=== PATIENT | female | born 1995 | race African-American/Black ===

== ENCOUNTER 2021-03-21 07:00 | Inpatient (IN) | payer OTHER ==
[2021-03-21] MEDS ORDERED: BUTORPHANOL TARTRATE 2 MG/ML VIAL ONE (08:26)
[2021-03-21] MEDS ORDERED: PROMETHAZINE HCL 25 MG/1 ML VIAL ONE (08:26)
[2021-03-21 09:08] VITALS: BMI 33.3
[2021-03-21] MEDS ORDERED: BUTORPHANOL TARTRATE 1 MG/ML VIAL IVPB ONE (09:51)
[2021-03-21] MEDS ORDERED: PROMETHAZINE HCL 25 MG/1 ML VIAL IVPB ONE (09:51)
[2021-03-21 09:58] LABS: BASO % 0.5 % (0-2.0); EOS % 0.9 % (0-4.5); HEMATOCRIT 33.6 % (32.4-45.2); HEMOGLOBIN 11.2 GM/dL (10.7-15.3); LYMPH % 21.6 % (8-40); MCHC 33.2 g/dl (32.0-36.0); MEAN CELL VOLUME 78.2 fl (80-96); MEAN PLT VOLUME 8.6 fl (7.5-11.1); MONO % 6.9 % (3.8-10.2); NEUT % 70.1 % (42.8-82.8); PLATELET COUNT 243 10^3/uL (134-434); RBC 4.29 M/mm3 (3.60-5.2); RDW 14.5 % (11.6-15.6); WHITE BLOOD COUNT 14.1 K/mm3 (4.0-10.0)
[2021-03-21] MEDS ORDERED: DEXTROSE 5%-LACTATED RINGERS 1,000 ML IV SCH (10:00)
[2021-03-21 10:08] LABS: INR 0.97 (0.83-1.09); PROTHROMBIN TIME (PATIENT) 11.4 SEC (9.7-13.0)
[2021-03-21 10:11] LABS: ACTIVATED PTT 30.9 SECONDS (25.2-36.5)
[2021-03-21] MEDS ORDERED: OXYTOCIN 20 UNITS in 0.9% NS 20 UNIT/1,000 ML INFUS.BAG IV ONE ×2 (10:41→12:11)
[2021-03-21 10:44] LABS: ALBUMIN 2.3 g/dl (3.4-5.0); BLOOD UREA NITROGEN 7.7 mg/dL (7-18); CALCIUM 8.3 mg/dL (8.5-10.1)
[2021-03-21 10:47] LABS: CREATININE 0.6 mg/dL (0.55-1.3)
[2021-03-21 10:49] LABS: BILIRUBIN,TOTAL 0.3 mg/dL (0.2-1); TOT PROT 5.7 g/dl (6.4-8.2)
[2021-03-21] MEDS ORDERED: BENZOCAINE 20% 57 GM BOTTLE TP PRN (10:51)
[2021-03-21] MEDS ORDERED: WITCH HAZEL 50% (TUCKS) 40 PAD/JAR PAD TP PRN (10:51)
[2021-03-21] MEDS ORDERED: METHYLERGONOVINE MALEATE 0.2 MG/1 ML AMP IM PRN (10:51)
[2021-03-21] MEDS ORDERED: ACETAMINOPHEN 325 MG TABLET (FP) PO PRN (10:51)
[2021-03-21] MEDS ORDERED: IBUPROFEN 600 MG TABLET (FP) PO PRN (10:51)
[2021-03-21] MEDS ORDERED: oxyCODONE HCL 5 MG TABLET PO PRN (10:51)
[2021-03-21] MEDS ORDERED: BENZOCAINE 28 GM HEMORRHOIDAL OINTMENT TP PRN (10:51)
[2021-03-21] MEDS ORDERED: BISACODYL 10 MG SUPP.RECT RC PRN (10:51)
[2021-03-21] MEDS ORDERED: OXYTOCIN 20 UNITS in 0.9% NS 20 UNIT/1,000 ML INFUS.BAG IV SCH (11:00)
[2021-03-21] MEDS ORDERED: OXYTOCIN 30 UNITS in 0.9% NS 30 UNIT/500 ML INFUS.BAG IVPB ONE (11:07)
[2021-03-21 12:04] LABS: HIV INTERPRETATION NEGATIVE (NEGATIVE)
[2021-03-22 08:57] LABS: BASO % 0.5 % (0-2.0); EOS % 1.9 % (0-4.5); HEMOGLOBIN 11.3 GM/dL (10.7-15.3); MCH 25.9 pg (25.7-33.7); MCHC 33.2 g/dl (32.0-36.0); MEAN CELL VOLUME 77.9 fl (80-96); MEAN PLT VOLUME 8.5 fl (7.5-11.1); MONO % 7.7 % (3.8-10.2); NEUT % 58.9 % (42.8-82.8); PLATELET COUNT 272 10^3/uL (134-434); RBC 4.36 M/mm3 (3.60-5.2); RDW 14.9 % (11.6-15.6); WHITE BLOOD COUNT 18.7 K/mm3 (4.0-10.0)
[2021-03-22] MEDS: PRENATAL VITAMINS W/ FOLIC ACID TABLET (FP) PO SCH (09:24)
[2021-03-22] MEDS ORDERED: DIPHTH,PERTUSS(ACELL),TET 0.5 ML DISP.SYRIN IM ONE ×2 (10:00→11:00)
[2021-03-22] MEDS ORDERED: SENNOSIDES/DOCUSATE COMBO (SENNA PLUS) TABLET (UD) PO PRN (22:00)
[2021-03-23] MEDS: PRENATAL VITAMINS W/ FOLIC ACID TABLET (FP) PO SCH (10:13)
[2021-03-23 10:15] VITALS: BP 134/87; PULSE 91; TEMP 98.2
== END 2021-03-23 13:25 | disposition home or self-care (01) | DRG 560 ==
LOC: JLDR 07:00 → J3W 12:30
PROVIDERS: ADMIT Obstetrics & Gynecology; ATTEND Obstetrics & Gynecology
PROC: 0HQ9XZZ Repair Perineum Skin, External Approach (ICD-10-PCS; principal; 2021-03-21)
PROC: 10E0XZZ Delivery of Products of Conception, External Approach (ICD-10-PCS; 2021-03-21)
DX: O70.0 First degree perineal laceration during delivery (principal); O69.81X0 Labor and delivery complicated by cord around neck, without compression, not applicable or unspecified; Z3A.38 38 weeks gestation of pregnancy; Z37.0 Single live birth
CPT/HCPCS: 36415; 59409; 80053; 85025; 85610; 85730; 86780; 86850; 86900; 86901; 87389; 90715; C9803; U0003; U0005

== ENCOUNTER 2023-09-28 08:00 | Inpatient (IN) | payer BC, OTHER ==
[2023-09-28] MEDS ORDERED: LIDOCAINE HCL 1% PRESERVATIVE FREE - 30ML VIAL ONE (08:16)
[2023-09-28] MEDS ORDERED: OXYTOCIN 20 UNITS in 0.9% NS 20 UNIT/1,000 ML INFUS.BAG IV ONE ×2 (08:16→09:16)
[2023-09-28] MEDS: CARBOPROST TROMETHAMINE 250 MCG/ML AMPUL IM ONE (08:28)
[2023-09-28] MEDS ORDERED: METHYLERGONOVINE MALEATE 0.2 MG/1 ML AMP IM PRN (08:40)
[2023-09-28] MEDS ORDERED: WITCH HAZEL 50% (TUCKS) 40 PAD/JAR PAD TP PRN (08:40)
[2023-09-28] MEDS ORDERED: BENZOCAINE 20% 57 GM BOTTLE TP PRN (08:40)
[2023-09-28] MEDS ORDERED: BENZOCAINE 28 GM HEMORRHOIDAL OINTMENT TP PRN (08:40)
[2023-09-28] MEDS ORDERED: oxyCODONE HCL 5 MG TABLET PO PRN (08:40)
[2023-09-28] MEDS ORDERED: BISACODYL 10 MG SUPP.RECT RC PRN (08:40)
[2023-09-28 09:09] VITALS: BMI 35.3
[2023-09-28 09:26] LABS: BASO % 0.3 % (0-2.0); EOS % 1.1 % (0-4.5); HEMATOCRIT 36.9 % (32.4-45.2); HEMOGLOBIN 12.4 GM/dL (10.7-15.3); LYMPH % 13.4 % (8-40); MCH 25.9 pg (25.7-33.7); MCHC 33.5 g/dl (32.0-36.0); MEAN CELL VOLUME 77.2 fl (80-96); MEAN PLT VOLUME 8.8 fl (7.5-11.1); MONO % 5.2 % (3.8-10.2); PLATELET COUNT 303 10^3/uL (134-434); RBC 4.78 M/mm3 (3.60-5.2); WHITE BLOOD COUNT 16.9 K/mm3 (4.0-10.0)
[2023-09-28 09:30] LABS: INR 0.93 (0.83-1.09); PROTHROMBIN TIME (PATIENT) 10.7 SEC (9.7-13.0)
[2023-09-28 09:33] LABS: ACTIVATED PTT 29.8 SECONDS (25.2-36.5)
[2023-09-28 09:43] LABS: POTASSIUM 3.6 mmol/L (3.5-5.1)
[2023-09-28 09:45] LABS: BLOOD UREA NITROGEN 9.2 mg/dL (7-18); CALCIUM 8.4 mg/dL (8.5-10.1)
[2023-09-28 09:48] LABS: CREATININE 0.5 mg/dL (0.55-1.3)
[2023-09-28 09:58] VITALS: RESP 18
[2023-09-28] MEDS ORDERED: NIFEdipine E.R. 30 MG TABLET PO ONE (10:13)
[2023-09-28] MEDS ORDERED: IBUPROFEN 600 MG TABLET (FP) PO ONE (10:14)
[2023-09-28] MEDS: NIFEdipine E.R. 30 MG TABLET PO SCH (10:15)
[2023-09-28] MEDS: IBUPROFEN 600 MG TABLET (FP) PO PRN (10:15)
[2023-09-28] MEDS: OXYTOCIN 20 UNITS in 0.9% NS 20 UNIT/1,000 ML INFUS.BAG IV SCH (10:22)
[2023-09-28 10:40] LABS: HIV INTERPRETATION NEGATIVE (NEGATIVE)
[2023-09-28] MEDS: FERROUS SO4 325 MG TABLET (FP) PO SCH (11:13)
[2023-09-28] MEDS: PRENATAL VITAMINS W/ FOLIC ACID TABLET (FP) PO SCH (11:13)
[2023-09-28] MEDS: LABETALOL HCL 200 MG TABLET (FP) PO STA (18:07)
[2023-09-29 08:01] LABS: BASO % 0.5 % (0-2.0); EOS % 1.3 % (0-4.5); HEMATOCRIT 32.9 % (32.4-45.2); HEMOGLOBIN 10.7 GM/dL (10.7-15.3); LYMPH % 31.7 % (8-40); MCH 25.4 pg (25.7-33.7); MCHC 32.5 g/dl (32.0-36.0); MEAN PLT VOLUME 8.9 fl (7.5-11.1); NEUT % 59.5 % (42.8-82.8); PLATELET COUNT 300 10^3/uL (134-434); RBC 4.21 M/mm3 (3.60-5.2); WHITE BLOOD COUNT 15.2 K/mm3 (4.0-10.0)
[2023-09-29] MEDS: NIFEdipine E.R. 30 MG TABLET PO STA (17:23)
[2023-09-29] MEDS ORDERED: SENNOSIDES/DOCUSATE COMBO (SENNA PLUS) TABLET (UD) PO PRN (22:00)
[2023-09-30 05:04] VITALS: PULSE 113
[2023-09-30] MEDS: ACETAMINOPHEN 325 MG TABLET (FP) PO PRN (06:48)
[2023-09-30 12:20] VITALS: BP 124/83; TEMP 98.1
== END 2023-09-30 12:20 | disposition home or self-care (01) | DRG 807 ==
LOC: JLDR 08:00 → J3W 10:40
PROVIDERS: ADMIT Obstetrics & Gynecology; ATTEND Obstetrics & Gynecology
PROC: 10E0XZZ Delivery of Products of Conception, External Approach (ICD-10-PCS; principal; 2023-09-28)
DX: O77.0 Labor and delivery complicated by meconium in amniotic fluid (principal); Z37.0 Single live birth; Z3A.38 38 weeks gestation of pregnancy
CPT/HCPCS: 36415; 59409; 80048; 85025; 85610; 85730; 86780; 86803; 86850; 86900; 86901; 87389